=== PATIENT | female | born 1980 | race Caucasian/White ===

== ENCOUNTER → 2021-02-08 | Outpatient (CLI) | payer MEDICAID, SELFPAY ==
[2017-05-15 02:21] VITALS: BMI 26.2
[2021-02-12 12:41] LABS: HPV APTIMA, High Risk Negative (Negative)
== END | disposition home or self-care (01) ==
LOC: LABSPEC 15:06
PROVIDERS: Visit Provider Student in an Organized Health Care Education/Training Program
DX: Z12.4 Encounter for screening for malignant neoplasm of cervix (principal)
CPT/HCPCS: 87624; 88175; G0145

== ENCOUNTER → 2021-02-11 13:44 | Outpatient (CLI) | payer MEDICAID, SELFPAY ==
--- NOTE | 2021-02-11 13:52 | BI_ITS ---
MAMMOGRAPHY - BILATERAL DIAGNOSTIC REASON FOR EXAM: Female, 40 years old. Right breast lump. PERTINENT HISTORY: Non-contributory. TECHNIQUE: Digital bilateral breast jayleen (3D mammographic acquisition) in the CC and MLO projections. 2-D mediolateral oblique (MLO) and craniocaudad (CC) views of both breasts were obtained. CAD: Full Field Digital Mammography with Computer Added Detection was performed. COMPARISON: None. Baseline examination. FINDINGS: Breast Composition: The breasts are extremely dense, which lowers the sensitivity of mammography. The palpable abnormality corresponds to a 2.1 cm x 2 cm nodule in the upper deep lateral portion of the right breast. Correlation with ultrasound is recommended. No other significant abnormalities are identified. BI/DIAG MAMM W/CAD, BILAT IMPRESSION: The palpable abnormality corresponds to a 2 cm x 2.1 cm nodular density. Correlation with ultrasound is recommended. ASSESSMENT CATEGORY: BIRADS Category 0: Incomplete. Need additional imaging evaluation. A letter regarding these results will be sent to the patient by the facility within 30 days. Approximately 10% of breast cancers are not detected by mammography. A normal mammogram should not delay biopsy of a clinically suspicious abnormality. Electronically Signed: Manan Yi MD at 14:33 EDT , Service support ,
--- NOTE | 2021-02-11 14:17 | US_ITS ---
STUDY: ULTRASOUND BREAST - RIGHT REASON FOR EXAM: Female, 40 years old. Palpable lump in the right breast. TECHNIQUE: Axial and longitudinal images of the RIGHT breast were performed with a high resolution ultrasound transducer. # OF IMAGES: 20 COMPARISON: Comparison is made with prior mammogram done earlier today. FINDINGS: RIGHT Breast: The mammographic abnormality corresponds to a 1.9 cm x 1.6 cm x 1.5 cm hypoechoic slightly lobular nodular density at the 11 o''clock position of the breast at 5 cm from the nipple. Increased vascularity. A biopsy is recommended. US/Breast Limited Unilateral IMPRESSION: The palpable abnormality corresponds to a 1.9 cm x 1.6 cm x 1.5 cm slightly lobular hypoechoic solid nodule at the 11 o''clock position of the breast at 5 cm from the nipple. Increased vascularity. Biopsy is recommended. ASSESSMENT CATEGORY: BIRADS Category 4: Suspicious - Biopsy Should Be Considered. A letter regarding these results will be sent to the patient by the facility within 30 days. Electronically Signed: Manan Yi MD at 15:04 EDT , Service support ,
== END ==
PROVIDERS: PCP Physician Assistant; Referring Provider Student in an Organized Health Care Education/Training Program; Visit Provider Student in an Organized Health Care Education/Training Program
DX: N63.11 Unspecified lump in the right breast, upper outer quadrant (principal)
CPT/HCPCS: 76642; 77062; 77066; G0279

== ENCOUNTER → 2021-02-18 | Outpatient (CLI) | payer MEDICAID, SELFPAY ==
--- NOTE | 2021-02-18 | IMM_PTH ---
PATIENT: MARY PHIPPS LOC: [facility] U#:[id number] AGE/SX: 40/F ROOM: RE02/18/[address]: Dr. Terri Sen MD : 1980 BED: DIS: 02/18/2021 SPEC #: [id number] RECD: 02/22/21 11:34 STATUS: ROMEO REQ #: [id number] CARMELO: 02/18/21 00:[address]: Terri Sen DEPT: IMMUNOHISTOCHEMISTRY RECD BY: Annie Doshi ENTERED: 02/22/21 11:34 SP TYPE: IMMUNO OTHR DR: REBECA Aranda Tissues: Right breast, NOS Procedures: SMA (add) CALPONIN-1 (add) P53 (add) P40 (add) 34BE12 (initial) PHYSICIAN & INSTITUTION [place] [facility] [id number] SPECIMEN INFORMATION: Tissue Source: Right breast tissue 11 o?clock, 5 cm Clinical Info: Right breast mass Specimen Number: [id number] CPT code: 95207, 19077 x4 METHODOLOGY: Deparaffinized sections of prefer/formalin-fixed tissue or PAP/DQ stained slides are incubated with monoclonal/polyclonal antibodies/oligonucleotide probes. Localization is made via biotin free immunoperoxidase method. Appropriate controls are performed and reacted as expected. Results on target cell population are indicated in the following table: RESULTS: ANTIBODY / CLONE RESULT 34BE12 (34BE12) positive Calponin-1 (UC844U) positive Actin (1A4) positive P40 (BC28) positive P53 (DO-7) negative These tests were developed and their performance characteristics determined by [facility]. They may not have been cleared or approved by the U.[place]. Food and Drug Administration. The FDA has determined that such clearance or approval is not necessary. The above immunohistochemical/dualISH markers are ordered and reviewed by the Pathologist. INTERPRETATION: Right breast, biopsy: Consistent with tubular adenoma of breast. AM:rubi 02/23/2021
[2021-02-18 14:24] VITALS: BMI 26.2
--- NOTE | 2021-02-18 14:30 | BRBX_PTH ---
PATIENT: MARY PHIPPS LOC: [facility] U#:[id number] AGE/SX: 40/F ROOM: RE02/18/[address]: Dr. Terri Sen MD : 1980 BED: DIS: 02/18/2021 SPEC #: [id number] RECD: 02/18/21 16:05 STATUS: ROMEO MANUELA #: [id number] CARMELO: 02/18/21 14:[address]: Terri Sen DEPT: SURGICAL PATHOLOGY RECD BY: Thelma Simms ENTERED: 02/19/21 08:28 SP TYPE: BREAST BX OTHR DR: REBECA Aranda Tissues: Right breast, NOS Procedures: Surgery Specimen Level IV HEADER OPERATION: Right breast biopsy PRE-OP DIAGNOSIS: Right breast mass; probable fibroadenoma TISSUE SUBMITTED: Right breast tissue 11 o?clock 5 cm MICROSCOPIC DIAGNOSIS Right breast mass, core biopsy: Consistent with benign tubular adenoma of breast. See comment. AM:rubi 02/22/2021 COMMENT Immunohistochemistry ([id number]) supports the above diagnosis. Case has been reviewed in consultation with Dr. Kemp who concurs with the above diagnosis. IDC:SJ MICROSCOPIC DESCRIPTION Slides are reviewed. GROSS DESCRIPTION Received in fixative is one container labeled with the patient's name and designated right breast. The specimen consists of multiple irregular and elongated fragments of light dominguez tissue that in aggregate measure 1.8 x 0.2 x 0.1 cm. The specimen is totally submitted in one cassette. / AM:rubi 02/19/21 TC:5 CPT: 79202
== END | disposition home or self-care (01) ==
LOC: LABSPEC 16:13
PROVIDERS: PCP Physician Assistant; Visit Provider Surgery
DX: N63.10 Unspecified lump in the right breast, unspecified quadrant (principal)
CPT/HCPCS: 88305; 88341; 88342

== ENCOUNTER → 2022-09-27 | Outpatient (CLI) | payer MEDICAID, SELFPAY ==
--- NOTE | 2022-09-27 16:41 | BI_ITS ---
MAMMOGRAPHY - BILATERAL SCREENING REASON FOR EXAM: Female, 42 years old. Routine annual screening examination. PERTINENT HISTORY: Right breast ultrasound biopsy in 2020. Grandmother with breast cancer. TECHNIQUE: Digital bilateral breast fela (3D mammographic acquisition) in the CC and MLO projections. 2-D mediolateral oblique (MLO) and craniocaudad (CC) views of both breasts were obtained. CAD: Full Field Digital Mammography with Computer Added Detection was performed. COMPARISON: Bilateral diagnostic breast mammogram from 02/11/2021. Right breast ultrasound from 02/11/2021. FINDINGS: Breast Composition: The breasts are extremely dense, which lowers the sensitivity of mammography. There is a 1.8 x 1.5 cm partially obscured mass in the right upper outer breast which has decreased in size from previous study, previously measuring 2.1 x 2.0 cm. There is a biopsy marker within the mass. There are no new masses, suspicious calcifications, or suspicious areas of architectural distortion identified. No other significant abnormalities are identified. BI/SCRN MAMM (CAD)W/EFLA BILAT IMPRESSION: Slight decrease in size of the right upper outer breast mass which was biopsied in 2020 with pathology results demonstrating benign tubular adenoma. No new mammographic findings to suggest malignancy. Yearly follow-up mammogram recommended. (A) ASSESSMENT CATEGORY: BIRADS Category 2: Benign. A letter regarding these results will be sent to the patient by the facility within 30 days. Approximately 10% of breast cancers are not detected by mammography. A normal mammogram should not delay biopsy of a clinically suspicious abnormality. Electronically Signed: Alin Garcia, at 16:37 EST ,
== END | disposition home or self-care (01) ==
LOC: OPBI 09-28 07:01
PROVIDERS: PCP Physician Assistant; Visit Provider Student in an Organized Health Care Education/Training Program
DX: Z12.31 Encounter for screening mammogram for malignant neoplasm of breast (principal); Z80.3 Family history of malignant neoplasm of breast; N63.11 Unspecified lump in the right breast, upper outer quadrant
CPT/HCPCS: 77063; 77067